=== PATIENT | female | born 1990 | race Hispanic/Latino ===

== ENCOUNTER 2016-11-24 09:55 | Inpatient (IN) | payer OTHER ==
[2016-11-24] VITALS (11 sets, daily range): BP systolic 102–142; BP diastolic 65–83
[~2016-11-24] VITALS: Ht 160 cm; Wt 74.5 kg
--- NOTE | 2016-11-24 09:52 | NUR ---
IVF AND PENICILLIN G STARTED FOR POSITIVE GBS AT THIS TIME.
--- NOTE | 2016-11-24 09:54 | NUR ---
, WITH ARLEN 11/27/16 CAME TO TRIAGE C/O CONTRACTIONS THAT ARE 5 MINUTES APART AND STARTED THIS MORNING AT 0500AM. ALSO SOME BLOODY/BROWN DISCHARGE WHEN SHE WIPES AFTER USING THE BATHROOM. PT HAS A HISTORY OF FA[facility], AND IS GBS POSITIVE. HEIGHT/WEIGHT/UA/DOA OBTAINED. CHANGED INTO GOWN, ASSISTED TO BED, EFM STARTED. INITIAL ASSESSMENT DONE.
--- NOTE | 2016-11-24 10:10 | NUR ---
SVE DONE, 2-3/80%/-1, OLD BLOOD NOTED ON GLOVE.
[2016-11-24 10:13] LABS: URINE BILIRUBIN - DIPSTICK NEGATIVE (NEGATIVE); URINE BLOOD DIPSTICK SMALL (NEGATIVE); URINE COLOR YELLOW; URINE GLUCOSE - DIPSTICK NEGATIVE (NEGATIVE); URINE KETONE NEGATIVE (NEGATIVE); URINE LEUK ESTERASE TRACE (NEGATIVE); URINE NITRITE - DIPSTICK NEGATIVE (Negative); URINE PH 6.5 (4.5-8.0); URINE PROTEIN - DIPSTICK NEGATIVE (NEG-TRACE)
[2016-11-24 10:22] LABS: URINE CLARITY SLIGHT CLOUDY; URINE EPITHELIAL CELLS FEW EPI/hpf (0-FEW); URINE RBC 0-2 RBC/hpf (0-5); URINE WBC 0-2 WBC/hpf (0-5)
[2016-11-24 10:23] LABS: BARBITURATES NEGATIVE (NEGATIVE); COCAINE NEGATIVE (NEGATIVE); METHADONE NEGATIVE (NEGATIVE); OXCYCODONE NEGATIVE (NEGATIVE); TETRAHYDROCANNABIONOL NEGATIVE (NEGATIVE); TRICYLIC ANTIDEPRESSANTS NEGATIVE (NEGATIVE)
--- NOTE | 2016-11-24 10:30 | NUR ---
DR. HUTTON NOTIFIED OF PT BEING HERE, COMPLAINTS, REGULAR CONTRACTIONS, SVE RESULTS WELL GBS POSITIVE. ORDERS RECEIVED.
--- NOTE | 2016-11-24 10:40 | NUR ---
18G IV STARTED ON RIGHT WRIST, LABS DRAWN. PT TOLERATED PROCEDURE WELL.
--- NOTE | 2016-11-24 10:52 | NUR ---
IVF AND PENICILLIN G STARTED FOR POSITIVE GBS AT THIS TIME.
--- NOTE | 2016-11-24 11:00 | NUR ---
CONSENTS SIGNED. DISCUSSED PLAN OF CARE WITH PT AND . BOTH VERBALIZED UNDERSTANDING.
[2016-11-24 11:03] LABS: HEMATOCRIT 34.8 % (37.0-47.0); HEMOGLOBIN 12.2 g/dl (12.0-16.0); IMMATURE GRANULOCYTES 0.2 % (0.0-1.0); MEAN CORPUSCULAR HGB 31.2 pG CALC (26.0-32.0); MEAN CORPUSCULAR HGB CONC 35.1 g/L CALC (32.0-36.0); NEUT# 3.79 thou/uL (2.00-7.15); RED BLOOD COUNT 3.91 mill/uL (4.20-5.60)
--- NOTE | 2016-11-24 11:11 | NUR ---
EFM OFF SO PT CAN AMBULATE IN THE HALLWAYS.
[2016-11-24 11:15] LABS: ALBUMIN 3.3 g/dL (3.2-5.0); ALKALINE PHOSPHATASE 196 u/l (38-126); ANION GAP 13 (6-22 (CALC)); BILIRUBIN, TOTAL 0.7 mg/dL (0.0-1.4); BUN 4 mg/dL (7-17); BUN/CREATININE RATIO 10 (12-20 (CALC)); CALCIUM 8.7 mg/dL (8.4-10.2); CARBON DIOXIDE 20 mmol/l (22-30); CHLORIDE 106 mmol/l (95-108); CREATININE 0.4 mg/dL (0.5-1.0); GFR > 60 ML/MIN (>=60 (CALC)); GFR FOR AFR.AMER. > 60 ML/MIN (>=60 (CALC)); GLUCOSE 85 mg/dL (65-105); POTASSIUM 3.7 mmol/l (3.5-5.1); SGOT/AST 20 u/l (14-36); SGPT/ALT 28 u/l (9-52); SODIUM 135 mmol/l (137-146); TOTAL PROTEIN 6.3 g/dL (6.3-8.2)
[2016-11-24] MEDS ORDERED: PRE-NATAL PO (11:34)
[2016-11-24] MEDS ORDERED: FERR SULFATE325 MG PO (11:34)
--- NOTE | 2016-11-24 11:48 | NUR ---
PT SITTING UP AT EDGE OF BED, EFM RESTARTED. REMAINS AT BEDSIDE, C/O INCREASED PAIN, BUT DENIES NEED FOR PAIN MEDICATION.
--- NOTE | 2016-11-24 12:24 | NUR ---
EFM OFF SO THAT PT CAN AMBULATE IN THE HALLWAYS.
--- NOTE | 2016-11-24 13:00 | NUR ---
PT BACK TO SITTING AT THE EDGE OF BED, EFM RESTARTED. DR. HUTTON CALLED AND STATED HE WILL BE HERE SOON TO CHECK PT.
--- NOTE | 2016-11-24 13:30 | NUR ---
PT UP TO VOID, FEELING MORE PRESSURE WITH EACH CONTRACTION, THEN BACK TO BED, ON LEFT LATERAL POSITIONING.
--- NOTE | 2016-11-24 13:52 | NUR ---
SVE DONE PT C/O INCREASED PRESSURE AND WANTING TO PUSH, 8/90%/0. DR. HUTTON ARRIVED IN UNIT AND NOTIFIED OF SVE RESULTS. PHARMACY CALLED TO BRING 2ND DOSE OF PCN IN ATTEMPT TO GIVE IT BEFORE BABY IS BORN.
--- NOTE | 2016-11-24 14:04 | NUR ---
DR. HUTTON AT BEDSIDE, SVE DONE, 9CM, PREPPING FOR DELIVERY.
--- NOTE | 2016-11-24 14:11 | NUR ---
PT SROM FOR CLEAR FLUID. DR. HUTTON CALLED FOR DELIVERY PT IS PUSHING.
--- NOTE | 2016-11-24 14:17 | NUR ---
OF MALE BY DR. HUTTON. PITOCIN 20UNITS IN LR STARTED BOLUSING PER MD'S ORDER.
--- NOTE | 2016-11-24 14:20 | NUR ---
PLACENTA OUT AT THIS TIME. FUNDUS FIRM AT UMBILICUS. SEE FUNDAL CHECKS FOR FURTHER DOCUMENTATION.
--- NOTE | 2016-11-24 15:00 | NUR ---
PT AT THIS TIME, POSITIVE BONDING. REMAINS AT BEDSIDE.
--- NOTE | 2016-11-24 16:30 | NUR ---
PT ASSISTED TO BATHROOM, VOIDED 600ML, PASSED SEVERAL SMALL CLOTS (QUARTER SIZED), FUNDUS MASSAGED TO FIRM. PERICARE DONE, PANTIES AND PADS PLACED, GOWN CHANGED. PT AMBULATED TO ROOM 205, IN STABLE CONDITION. POST TEACHING DONE, PT VERBALIZED UNDERSTANDING. DENIES ANY PAIN. REMAINS AT BEDSIDE.
--- NOTE | 2016-11-24 18:20 | NUR ---
VS DONE, HR IS 51, REGULAR, APICALLY, BP IS 142/79. PT DENIES SHORTNESS OF BREATH OR CHEST PAIN. DOES ADMIT TO ABDOMINAL CRAMPING, WILL MEDICATE WITH MOTRIN. DENIES ANY OTHER NEEDS AT THIS TIME.
--- NOTE | 2016-11-24 19:00 | NUR ---
BEDSIDE REPORT RECEIVED FROM Alexander TORRES. PT SITTING UP IN BED. BED IN LOW POSITION, CALL LIGHT IN REACH. RESP EVEN AND UNLABORED. IV FLUIDS GOING AT 125/HR. IV SITE SHOWS NO S/S INFILTRATION. PT DENIES ANY NEEDS AT THIS TIME. POC GIVEN. WILL CONTINUE TO MONITOR.
--- NOTE | 2016-11-24 20:10 | NUR ---
IN TO CHECK ON PATIENT. UP TO BATHROOM. URINATED, EVETTE CARE EXPLAINED WITH RETURN DEMO. ASSESSMENT AND VS STABLE CHARTED. IV RUNNING, ALMOST COMPLETE. DENIES COUGH, PAIN, N/V. DENIES OTHER NEEDS. QUESTIONS ASKED AND ANSWERED. CALL LIGHT IN REACH.
--- NOTE | 2016-11-25 04:12 | NUR ---
PT AWAKE, UP TO FEED . DENIES PAIN OR NEEDS. STATES UP RECENTLY TO USE BATHROOM. WATER AND JUICE GIVEN. CALL LIGHT IN REACH.
--- NOTE | 2016-11-25 06:09 | NUR ---
CBC DRAWN X1 ATTEMPT TO RT AC. PT TOLERATED WELL. DENIES PAIN AT THIS TIME. PT STATES UP AROUND 0400 TO BATHROOM. CALL LIGHT IN REACH. REPORT PREPARED FOR NEXT SHIFT.
[2016-11-25 06:17] LABS: HEMATOCRIT 34.7 % (37.0-47.0); HEMOGLOBIN 12.3 g/dl (12.0-16.0); IMMATURE GRANULOCYTES 0.2 % (0.0-1.0); MEAN CELL VOLUME 88.5 fL CALC (80.0-100.0); MEAN CORPUSCULAR HGB 31.4 pG CALC (26.0-32.0); MEAN CORPUSCULAR HGB CONC 35.4 g/L CALC (32.0-36.0); NEUT# 3.93 thou/uL (2.00-7.15); RED BLOOD COUNT 3.92 mill/uL (4.20-5.60); RED CELL DISTRI WIDTH 12.7 % (11.5-15.5)
--- NOTE | 2016-11-25 06:55 | NUR ---
PT AWAKE, SITTING UP IN BED, . DENIES ANY NEEDS AT THIS TIME.
[2016-11-25 07:25] VITALS: BP 121/77
--- NOTE | 2016-11-25 07:25 | NUR ---
VS AND ASSESSMENT DONE AT THIS TIME, STABLE, DENIES ANY PAIN. DISCUSSED PLAN OF CARE WITH PT, PT VERBALIZED UNDERSTANDING.
--- NOTE | 2016-11-25 08:15 | NUR ---
DR. HUTTON AT BEDSIDE.
--- NOTE | 2016-11-25 08:29 | NUR ---
INSTRUCTED PT ON EDUCATIONAL PAPERS IN PREPARATION FOR DISCHARGE TOMORROW. TIGR VIDEOS CURRENTLY NOT WORKING. PT VERBALIZED UNDERSTANDING.
--- NOTE | 2016-11-25 11:25 | NUR ---
DISCHARGE INSTRUCTIONS GIVEN TO PT AND , IN [place], IN PREPARATION FOR GOING HOME TOMORROW. BOTH VERBALIZED UNDERSTANDING.
--- NOTE | 2016-11-25 13:11 | NUR ---
PT UP, AMBULATING IN THE ROOM, DENIES ANY PAIN OR NEEDS AT THIS TIME.
--- NOTE | 2016-11-25 14:39 | NUR ---
PT TRYING TO TAKE A NAP, DENIES ANY NEEDS.
[2016-11-25 16:00] VITALS: BP 129/74
--- NOTE | 2016-11-25 16:00 | NUR ---
PT SITTING UP IN BED, INFANT. VS DONE, STABLE, DENIES ANY PAIN.
--- NOTE | 2016-11-25 18:20 | NUR ---
PT SITTING UP IN BED, HOLDING INFANT, DENIES ANY PAIN OR NEEDS.
[2016-11-25 19:20] VITALS: BP 113/65
--- NOTE | 2016-11-25 19:20 | NUR ---
PT DANGLE AT BEDSIDE. IN OPEN CRIB. ASSESSMENT COMPLETED CHARTED. PT DENIES ANY PAIN OR OTHER NEEDS AT THIS TIME. ENCOURAGED PT TO CALL WITH NEEDS.
--- NOTE | 2016-11-25 21:00 | NUR ---
PT LYING ON RIGHT SIDE. SNACK PROVIDED WITH WATER AND JUICE. PT DENIES ANY PAIN OR NEEDS AT THIS TIME. ENCOURAGED TO CALL WITH NEEDS.
[2016-11-26 02:58] VITALS: BP 119/77
--- NOTE | 2016-11-26 02:58 | NUR ---
VS ASSESSED. PT DENIES ANY PAIN OR NEEDS. PT OOB TO BR TO VOID. ENCOURAGED PT TO CALL WITH NEEDS.
--- NOTE | 2016-11-26 06:16 | NUR ---
PT RESTING QUIETLY IN BED WITH EYES CLOSED. PT DID NOT WAKE WHEN ENTERED THE ROOM. WOKE PT TO LET KNOW WE WERE TAKING INFANT TO NURSERY. PT DENIES ANY PAIN OR NEEDS AT THIS TIME. ENCOURAGED PT TO CALL WITH NEEDS.
--- NOTE | 2016-11-26 07:30 | NUR ---
IN RESTROOM. VERBALISES NO CONCERNS.
--- NOTE | 2016-11-26 08:28 | NUR ---
IN ROOM . NO CONCERNS AT THIS TIME. TOOK AND TOLERATED BREAKFAST.
--- NOTE | 2016-11-26 09:04 | NUR ---
VIDEOS VIA TIGR SYSTEM STILL NOT WORKING.
[2016-11-26] MEDS ORDERED: IBUPROFEN600 MG PO (09:08)
--- NOTE | 2016-11-26 09:38 | NUR ---
ASSESSMENT DONE CHARTED. DENIES PAIN. STATES SHE HAD A BM. NO CONCERNS AT THIS TIME. PRESCRIPTION GIVEN FOR MOTRIN.
[2016-11-26 10:14] VITALS: BP 113/71
--- NOTE | 2016-11-26 12:16 | NUR ---
Discharge instructions given. Patient verbalizes understanding of same. Discharged in stable condition via Wheelchair to Home with family. All belongings sent with pt. will follow up in 4 weeks in [place] [facility], which ever she prefers.
== END 2016-11-26 12:16 | disposition home or self-care (01) | DRG 775 ==
LOC: OBOP 09:55 → OB 10:15 → OBOP 10:29 → OB 10:30 → OBOP 11-27 11:45
PROC: 10E0XZZ Delivery of Products of Conception, External Approach (ICD-10-PCS; principal; 2016-11-24)
DX: O99.824 Streptococcus B carrier state complicating childbirth (principal); Z37.0 Single live birth; Z3A.39 39 weeks gestation of pregnancy
CPT/HCPCS: J2540